=== PATIENT | female | born 1985 | race Caucasian/White ===

== ENCOUNTER 2017-09-27 01:51 | Emergency (ER) | payer BC ==
[~2017-09-27] VITALS: Ht 162.6 cm; Wt 115.5 kg
[2017-09-27 02:31] VITALS: BP 123/79
== END 2017-09-27 02:32 | disposition short-term general hospital (02) ==
LOC: ER 01:51
DX: Z34.83 Encounter for supervision of other normal pregnancy, third trimester (principal); Z3A.38 38 weeks gestation of pregnancy
CPT/HCPCS: 99285; J7030